=== PATIENT | female | born 1950 ===

== ENCOUNTER → 2018-06-18 15:33 | Outpatient (REF) | payer BC, SELFPAY ==
[2018-06-18 15:53] LABS: Urine Amphetamines Negative (Negative); Urine Barbiturates Negative (Negative); Urine Benzodiazepines Negative (Negative); Urine Cocaine Negative (Negative); Urine MDMA Negative (Negative); Urine Methadone Negative (Negative); Urine Methamphetamines Negative (Negative); Urine Morphine/Opi cutoff 2000 Positive (Negative); Urine Oxycodone Negative (Negative); Urine Phencyclidine Negative (Negative); Urine Tetrahydrocannabinol Positive (Negative); Urine Tricyclic Antidepressant Negative (Negative)
== END ==
LOC: LAB 15:33
PROVIDERS: Visit Provider Family Medicine Addiction Medicine
DX: M12.9 Arthropathy, unspecified (principal); Z79.899 Other long term (current) drug therapy
CPT/HCPCS: 80305